=== PATIENT | male | born 1960 | race Hispanic/Latino ===

== ENCOUNTER → 2022-07-17 | Outpatient (CLI) | payer MEDICARE ==
[~2022-07-17] MED LIST: AEC81 PO; ATOR40TA71 PO; BIMA12.5OS OU; COMB5OS OU; DOCU-280 PO; DORZ10DR9 OU; FAMO20TA8 PO; FOLI1TAB85 PO; INSLAN SQ; MIDO5TAB4 PO; SEVE800T7 PO
== END | disposition home or self-care (01) ==
LOC: SHCH 07:32
PROVIDERS: ATTEND Internal Medicine Cardiovascular Disease
DX: E11.9 Type 2 diabetes mellitus without complications (principal); R01.1 Cardiac murmur, unspecified; E78.5 Hyperlipidemia, unspecified; I35.0 Nonrheumatic aortic (valve) stenosis; Z95.1 Presence of aortocoronary bypass graft
CPT/HCPCS: 93306